=== PATIENT | male | born 1960 | race Caucasian/White ===

== ENCOUNTER → 2017-04-08 | Outpatient (CLI) | payer OTHER ==
[~2017-04-08] MED LIST: ETODOLAC200 MG PO; HYDROCODONE-AP1 EAC6 PO; XANAX 0.25 MG0.25 MG PO
--- NOTE | 2017-04-13 07:49 | PAINCON ---
[address] [address] PAIN MANAGEMENT CONSULTATION Name: FRANKI GARCÍA Room: [facility].#: [id number] Admission: 04/08/17 Attend Phys: Benitez Garner Discharge: Date of : 58 Report #: [id number] THIS REPORT FOR: //name// CC: Garret Carrion The patient is a pleasant 56-year-old gentleman seen in consultation at the request of Dr. Arzate for assistance with management of pain, low back, right buttock and leg along with pain in the left neck, shoulder, and posterior arm. The patient has prior had 2 cervical surgeries, ACDF C5 through C7. He did well initially and somewhat ongoing, though with cold weather he gets some myelopathic symptoms. He does have myelomalacia on the MRI. He does have some left C7 radicular symptoms, pain in the shoulder and triceps. His primary complaint; however, is pain in the low back, right leg posterolateral aspect with subjective weakness and paresthesia down to the top of the right foot. He has tried chiropractic manipulation, nonsteroidal anti-inflammatory medications and oral opiate analgesics (hydrocodone), all with dwindling efficacy. He rates his pain a 7-8 on a VAS, describes aching, steady pain seems to be exacerbated with bending forward, movement, standing, and walking. Medications have helped to some degree, manipulation initially had helped, but chiropractic manipulation is losing efficacy. The patient again denies saddle anesthesia and denies bowel or bladder continence changes. REVIEW OF SYSTEMS: A complete review of systems was attached to chart and was gone over with the patient. He is single. Smokes which he has for 30 years, currently half pack a day. History of some insomnia for which he takes p.r.n. Xanax, he is otherwise enjoyed a reasonably good health other than the aforementioned 2 neck surgeries in 1998 and again in 2011. He had carpal tunnel surgery, bilateral hands in 2010. 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 Pain impact score is 40/70. PHYSICAL EXAMINATION: Reveals a 5 feet 9 inches, 168 pounds gentleman, BMI is 25.1 kg/m2. Blood pressure 120/85, pulse 77, respirations are 16. Cervical range of motion is limited in all planes. Grossly positive Lhermitte's ____ into the left shoulder and arm. Extraocular muscles are intact. No nystagmus noted with lateral gaze deviation. Thyroid is modestly enlarged. Upper extremity strength is generally preserved with the exception of left triceps strength, which is diminished compared to the right. Hand grasp is symmetric. Triceps reflex is diminished. Biceps, brachioradialis are symmetric. Heart is regular and rhythmical without murmur. Lungs [place] [address] PAIN MANAGEMENT CONSULTATION Name: FRANKI GARCÍA Room: [facility] Priti#: [id number] Admission: 04/08/17 Attend Phys: Benitez Garner Discharge: Date of : 58 Report #: [id number] from chair using armrest. Gait is minimally antalgic. Moderately positive straight leg raise at 30 degrees on the right. Patellar and Achilles reflexes; however, are preserved, slight decreased right plantarflexion strength. Skin integument is intact. DIAGNOSTIC STUDIES: Include MRI of the cervical spine from 01/14/2017, noting aforementioned myelomalacia at C6, ACDF C5 through C7. There is left neural foraminal narrowing C7-T1. Lumbar MRI from 03/12/2017, notes L3-L4 to show flattening of the anterior thecal sac, left exiting nerve root, L3 is abutted by bulging annulus, L4-L5 notes canal narrowed to 0.8 cm with marked left neural foraminal narrowing, L5-S1 notes narrowing neural foramen bilaterally. Again, the patient's symptoms are primarily right L5 radicular in the lumbar spine and left C7-C8 in the cervical spine. RECOMMENDATIONS: 1. Discussion with the patient today about therapeutic option. We will seek authorization for lumbar epidural injection at next visit (L5-S1). Continue Aleve [id number] b.i.d. 2. Follow subsequently to reevaluate. May consider cervical epidural injection if indicated for ongoing clinical cervical radicular symptoms. Thank you for allowing me to participate in the patient's care. I will keep you abreast of his progress. <ELECTRONICALLY SIGNED> By: Klaus Carrion DO 04/13/17 0749 [id number] Carrion DO /nt
== END ==
LOC: M.PC 01:45
DX: M54.2 Cervicalgia (principal); M25.512 Pain in left shoulder; M79.602 Pain in left arm

== ENCOUNTER → 2017-04-22 | Outpatient (CLI) | payer OTHER ==
--- NOTE | 2017-04-29 07:59 | PAINCON ---
[address] [address] PAIN MANAGEMENT CONSULTATION Name: FRANKI GARCÍA [id number] Admission: 04/22/17 Attend Phys: Benitez Garner Discharge: Date of : 58 Report #: [id number] THIS REPORT FOR: //name// CC: Garret Carrion DATE OF SERVICE: 04/22/2017 The patient is a very pleasant 56-year-old gentleman, seen in consultation on 04/08/2017, diagnosed with symptomatic lumbar radiculopathy, has right-sided L5 radicular pain. Returns to pain clinic today for prior authorized epidural injection. ASSESSMENT: Symptomatic lumbar radiculopathy. The patient's symptom is unchanged, right L5 radicular pain. PROCEDURE: Lumbar epidural injection under fluoroscopy. PROCEDURE NOTE: After both written and informed consent to include risk of spinal cord damage, increased pain, weakness and dural puncture, the patient was taken to the fluoroscopy suite, placed in the prone position. After sterile prep and drape, a skin wheal with lidocaine was raised. A 22-gauge epidural Tuohy needle was inserted in the midline at L5-S1 with good loss to resistance. Negative aspiration for cerebrospinal fluid or blood was noted. Then 1 mL of Omnipaque under biplanar fluoroscopy showed good spread within the epidural space. This was followed with 80 mg of triamcinolone plus 1 mL of 1.5% preservative-free Xylocaine, 0.5 mL Xylocaine was then injected to flush the needle; it was removed. The patient was monitored for an appropriate period of time and discharged in good and stable condition. <ELECTRONICALLY SIGNED> By: Klaus Carrion DO 04/29/17 [id number] Carrion DO /nt
== END | disposition home or self-care (01) ==
LOC: M.PC 04-15 03:41
DX: M54.16 Radiculopathy, lumbar region (principal); Z79.891 Long term (current) use of opiate analgesic